=== PATIENT | male | born 1935 | race Caucasian/White ===

== ENCOUNTER → 2023-11-25 08:07 | Outpatient (REF) | payer MEDICARE, OTHER, SELFPAY ==
[2023-11-25 10:11] LABS: ALT (SGPT) 25 U/L (0-50); AST (SGOT) 34 U/L (17-59); Albumin 3.6 g/dl (3.5-5.0); Alkaline Phosphatase 129 U/L (38-126); Blood Urea Nitrogen 16 mg/dl (9-20); Calcium 9.2 mg/dl (8.4-10.2); Carbon Dioxide 29 mmol/L (22-30); Chloride 100 mmol/L (98-107); Glucose 104 mg/dl (70-99); HDL Cholesterol 34 mg/dl; LDL Cholesterol, Calculated 48 mg/dl; Sodium 140 mmol/L (135-145); Total Bilirubin 0.7 mg/dl (0.2-1.3); Total Cholesterol 101 mg/dl (50-199); Total Protein 6.3 g/dl (6.3-8.2); Triglyceride 95 mg/dl (10-149); Very Low Density Lipoprotein 19 mg/dl (0-30); eGFR > 60.00
[2023-11-25 10:25] LABS: Vitamin D, 25-OH*** 71.8 ng/mL (30-80)
== END ==
LOC: REG 08:07
PROVIDERS: ATTENDING PHYSICIAN Internal Medicine Cardiovascular Disease; FAMILY PHYSICIAN Family Medicine
DX: E55.9 Vitamin D deficiency, unspecified (principal); R73.01 Impaired fasting glucose; E78.2 Mixed hyperlipidemia
CPT/HCPCS: 36415; 80053; 80061; 82306

== ENCOUNTER → 2024-03-30 07:21 | Outpatient (REF) | payer MEDICARE, OTHER, SELFPAY ==
[2024-03-30 09:08] LABS: ALT (SGPT) 25 U/L (0-50); AST (SGOT) 40 U/L (17-59); Albumin 4.1 g/dl (3.5-5.0); Alkaline Phosphatase 115 U/L (38-126); Blood Urea Nitrogen 18 mg/dl (9-20); Calcium 9.3 mg/dl (8.4-10.2); Carbon Dioxide 30 mmol/L (22-30); Chloride 104 mmol/L (98-107); Glucose 105 mg/dl (70-99); HDL Cholesterol 37 mg/dl; LDL Cholesterol, Calculated 59 mg/dl; Potassium 4.2 mmol/L (3.5-5.1); Sodium 141 mmol/L (135-145); Total Bilirubin 0.6 mg/dl (0.2-1.3); Total Cholesterol 122 mg/dl (50-199); Triglyceride 131 mg/dl (10-149); Very Low Density Lipoprotein 26 mg/dl (0-30); eGFR > 60.00
[2024-03-30 09:23] LABS: Vitamin D, 25-OH*** 71.2 ng/mL (30-80)
[2024-03-30 09:41] LABS: Glycohemoglobin (HgbA1c) 5.9 % (4.0-5.6)
== END ==
LOC: REG 07:21
PROVIDERS: ATTENDING PHYSICIAN Family Medicine; REFERRING PHYSICIAN Internal Medicine Cardiovascular Disease
DX: E55.9 Vitamin D deficiency, unspecified (principal); R73.01 Impaired fasting glucose; Z79.899 Other long term (current) drug therapy
CPT/HCPCS: 36415; 80053; 80061; 82306; 83036

== ENCOUNTER → 2024-05-14 06:54 | Outpatient (REF) | payer MEDICARE, OTHER, SELFPAY | LOC: RCS 06:54 | PROVIDERS: ATTENDING PHYSICIAN Internal Medicine Cardiovascular Disease; FAMILY PHYSICIAN Family Medicine | DX: I48.92 Unspecified atrial flutter (principal); I34.0 Nonrheumatic mitral (valve) insufficiency | CPT/HCPCS: 93306 ==

== ENCOUNTER → 2025-03-31 07:53 | Outpatient (REF) | payer MEDICARE, OTHER, SELFPAY ==
[2025-03-31 09:02] LABS: ALT (SGPT) 22 U/L (0-50); AST (SGOT) 28 U/L (17-59); Albumin 4.5 g/dl (3.5-5.0); Alkaline Phosphatase 98 U/L (38-126); Blood Urea Nitrogen 21 mg/dl (9-20); Calcium 9.4 mg/dl (8.4-10.2); Carbon Dioxide 28 mmol/L (22-30); Chloride 109 mmol/L (98-107); Glucose 105 mg/dl (70-99); HDL Cholesterol 38 mg/dl; LDL Cholesterol, Calculated 73 mg/dl; Potassium 4.2 mmol/L (3.5-5.1); Sodium 144 mmol/L (135-145); Total Bilirubin 0.7 mg/dl (0.2-1.3); Total Cholesterol 135 mg/dl (50-199); Total Protein 7.5 g/dl (6.3-8.2); Triglyceride 121 mg/dl (10-149); Uric Acid 5.1 mg/dl (3.5-8.5); Very Low Density Lipoprotein 24 mg/dl (0-30); eGFR > 60.00
[2025-03-31 09:20] LABS: Vitamin D, 25-OH*** 56.8 ng/mL (30-80)
[2025-03-31 10:27] LABS: CRP, Ultra Sensitive 0.83 mg/L (0.30-5.00)
== END ==
LOC: REG 07:53
PROVIDERS: ATTENDING PHYSICIAN Family Medicine; REFERRING PHYSICIAN Internal Medicine Cardiovascular Disease
DX: I25.10 Atherosclerotic heart disease of native coronary artery without angina pectoris (principal); E55.9 Vitamin D deficiency, unspecified
CPT/HCPCS: 36415; 80053; 80061; 82306; 84550; 86141

== ENCOUNTER → 2025-06-02 15:34 | Outpatient (REF) | payer MEDICARE, OTHER, SELFPAY | LOC: REG 15:34 | PROVIDERS: ATTENDING PHYSICIAN Family Medicine | DX: R50.9 Fever, unspecified (principal) | CPT/HCPCS: 71046 ==

== ENCOUNTER 2025-08-21 20:15 | Inpatient (IN) | payer MEDICARE, OTHER, SELFPAY ==
[2025-08-21] VITALS (9 sets, daily range): BP systolic 109–175; BP diastolic 51–83; BMI 27.8; BMI 28.8
[2025-08-21 14:05] LABS: Hematocrit 39.5 % (39.0-52.0); Hemoglobin 14.7 g/dL (13.0-18.0); Mean Corp Hgb Conc. 37.2 g/dL (33.0-37.0); Mean Corpuscular Volume 88.0 fL (80.0-94.0); Nucleated Red Blood Cells % 0 % (-); Platelet Count 156 10^3/uL (130-400); Red Cell Dist. Width 13.7 % (11.5-14.5)
[2025-08-21 14:16] LABS: ALT (SGPT) 20 U/L (0-50); AST (SGOT) 29 U/L (17-59); Albumin 4.8 g/dl (3.5-5.0); Alkaline Phosphatase 96 U/L (38-126); Blood Urea Nitrogen 29 mg/dl (9-20); Calcium 9.1 mg/dl (8.4-10.2); Carbon Dioxide 20 mmol/L (22-30); Chloride 106 mmol/L (98-107); Glucose 135 mg/dl (70-99); Potassium 3.1 mmol/L (3.5-5.1); Sodium 140 mmol/L (135-145); Total Protein 7.6 g/dl (6.3-8.2); eGFR > 60.00
[2025-08-21 14:26] LABS: COVID-19 Antigen Negative (Negative)
--- NOTE | 2025-08-21 14:51 | ED.GENMED ---
History of Present Illness
<Mango Turcios DO - Last Filed: 08/21/25 15:18>
General
Chief Complaint: Fever
Time Seen by Provider: 08/21/25 14:37
<EUFEMIA Urbina - Last Filed: 08/21/25 21:14>
General
Source: patient and spouse
Exam Limitations: none
Nursing documentation reviewed up to this point in time: agreed with
History of Present Illness
History of Present Illness:
Patient is an 89-year-old male who presents to the ER complaining of chills that started last night. This morning patient continued to have chills and had severe diarrhea but did vomit once. His temperature was 102 this morning. reports she
did give him Tylenol. Patient denies any abdominal pain. He felt a little uncomfortable with urination but denies any actual pain. He does have a history of a flutter and is on Eliquis. He denies any recent URI cough cold symptoms.
Past History
<EUFEMIA Urbina - Last Filed: 08/21/25 21:14>
Past History
ED Past Medical History: HTN, Hypercholesterolemia and Other (gout, diverticulosis)
ED Past Surgical History: None
Social History
Tobacco: Non-smoker
Alcohol: None
Personal:
Living: with family
Employment: Retired
Family History
Family History: Other (Noncontributory)
Phy Exam
<EUFEMIA Urbina - Last Filed: 08/21/25 21:14>
General Physical Exam
General Presentation: no apparent distress
General age: appears stated age
General Skin: warm and dry
General Habitus: normal
General Mental: alert
General Hydration: dry mucous membranes
Cardiovascular Exam
Cardiovascular Exam: no murmur and occasionally irregular
Pulmonary Exam
Pulmonary Exam: lungs clear and no respiratory distress
Gastrointestinal Exam
Gastrointestinal Exam: non tender and soft
Neurological Exam
Neurological Exam: alert and oriented x3
Musculoskeletal Exam
Musculoskeletal Exam: full ROM
Skin Exam
Skin Exam: normal color and warm/dry
Psychiatric Exam
Psychiatric Exam: normal mood/affect
Course
<Mango Turcios, DO - Last Filed: 08/21/25 15:18>
Orders/Labs/Results
Orders:
Orders
08/21/25 Breakfast
Clear Liquid
At Your Request: Full Participation
08/21/25 13:51
Complete Blood Count/With Diff Urgent
Comprehensive Metabolic Panel Urgent
Blood Culture Q20M
INOCENTE Source: Blood/Venous
Specimen Description:
Comment: Urgent from separate sites. If patient screens positive for possible sepsis
Influenza A+B Rapid Molecular Urgent
INOCENET Source: Nasal Swab
Specimen Description:
08/21/25 13:52
COVID-19 Antigen Urgent
Source: Nasal Swab
Lactic Acid Q4H
Comment: ON ICE, CANCEL 2ND ORDER IF FIRST LACTIC ACID LEVEL <2
08/21/25 15:06
CT Abd/pelvis W Iv Cont Urgent
Comment:
Reason For Exam: abd pain/fever
Chest [CR Chest - 2 Views ] Urgent
Comment:
Reason For Exam: fever
08/21/25 15:07
Electrocardiogram (*1) Urgent
Reason for Study: Other
Other Reason for Exam: sepsis
Cardiac Monitoring- Treatment ONCE
EKG- Treatment ONCE
08/21/25 15:15
0.9% Sodium Chloride 1000 ml [Nss] 2,600 ml IV NOW STA
08/21/25 15:22
Blood Culture Q20M
INOCENTE Source: Blood/Venous
Specimen Description:
Comment: Urgent from separate sites. If patient screens positive for possible sepsis
08/21/25 17:20
CefTRIAXone [Rocephin] 1,000 mg IV NOW STA
08/21/25 17:40
Lactic Acid Q4H
Comment: ON ICE, CANCEL 2ND ORDER IF FIRST LACTIC ACID LEVEL <2
Urinalysis Reflex To Culture Urgent
Date Specimen was Collected: 08/21/25
Time Specimen was Collected: 13:42
Urine Microscopic Reflex Cult Urgent
Urine Culture Urgent
INOCENTE Source: U
Specimen Description:
Date Specimen was Collected: 08/21/25
Time Specimen was Collected: 13:42
08/21/25 18:39
Admit/Transfer Patient As Directed
Co-Sign Provider:
Level of Care: Inpatient admission
Assign to:: Telemetry
Physician / Group: Valorie
Diagnosis: Sepsis
Reason for Telemetry: Arrhythmia
Date to Stop Telemetry: 08/24/25
Time to Stop Telemetry: 11:00
Reason for Hospitalization: IVFs, IV abx
Expected length of stay greater than two midnights?: Yes
ELOS- Estimated Length of Stay in days: 3
I certify the patient meets the requirements for IP care: Yes
08/21/25 18:40
PRN Pain Medication Management As Directed
May give lesser potent ordered pain med per pt: Yes
preference::
Protocol:: Medication orders for pain may be administered in a
manner that supports deferring to patient preference
when the pt is:
- Requesting an ordered lesser potent pain medication.
Least to most potent pain medications are defined
as: acetaminophen < NSAID < tramadol < opioids
(morphine, oxycodone, hydromorphone).
- Requesting a lesser dose of the same medication IF
ORDERED.
- Requesting a less intrusive route of administration
if both routes are prescribed by the provider (PO <
IV).
08/21/25 18:42
Code Status As Directed
Resuscitation Status: Full Code
08/21/25 18:45
0.9% Sodium Chloride 1000 ml [Nss] 1,000 ml IV 120 mls/hr
08/21/25 18:52
Potassium Chloride [KCl] 40 meq 0.9% Sodium Chloride 250 ml [Nss] 250 ml IV NOW
08/21/25 19:32
Norovirus by PCR Urgent
INOCENTE Source: Feces/Stool
Specimen Description:
Date Specimen was Collected: 08/21/25
Time Specimen was Collected: 19:30
Stool Culture Urgent
INOCENTE Source: Feces/Stool
Specimen Description:
Date Specimen was Collected: 08/21/25
Time Specimen was Collected: 19:30
08/21/25 20:56
Acetaminophen [Tylenol] 650 mg PO Q4HPRN PRN
Apixaban [Eliquis] 5 mg PO BID
Metoprolol [Lopressor] 25 mg PO BID
Ondansetron Injectable [Zofran] 4 mg IV Q6HPRN PRN
08/21/25 20:56
Activity As Directed
Activity Level: Out of Bed-Early Mobility
With Assistance
Bladder Scan As Directed
Follow Bladder Retention/Intermittent Cath Algorithm?: Yes
PRN if no void in __ hours: 6
Frequency: Per Retention Algorithm
If Bladder Scan Result >: 400
then:: Straight cath
I&O [Intake/ Output] As Directed
Frequency: q12h
Straight Cath As Directed
Frequency: Per Retention Algorithm
Additional Instructions: straight cath as needed per acute urinary retention algorithm for 24 hrs
Additional Instructions: for bladder scan greater than 400 mL
Vital Signs As Directed
Frequency: Per unit guidelines
Weight As Directed
Frequency: Daily
08/21/25 21:45
Lactic Acid Q4H
Comment: repeat q4 hours x 4 or until less than 2 mmol/L
08/21/25 22:00
Melatonin 5 mg PO HS
08/22/25 01:45
Lactic Acid Q4H
Comment: repeat q4 hours x 4 or until less than 2 mmol/L
08/22/25 06:00
Basic Metabolic Panel IN AM
Complete Blood Count/No Diff IN AM
Hgba1c [Glycohemoglobin (HgbA1c)] IN AM
Magnesium IN AM
08/22/25 08:00
Lisinopril [Zestril] 10 mg PO DAILY
08/22/25 18:00
Allopurinol [Zyloprim] 200 mg PO QPM
Atorvastatin [Lipitor] 40 mg PO QPM
CefTRIAXone [Rocephin] 1,000 mg IV Q24H
08/24/25 11:00
DC Protocol for Telemetry ONCE
Abnormal Lab Results
08/21/25 08/21/25 08/21/25
13:51 13:52 17:40
WBC 21.7 H 10^3/uL
(4.8-10.8)
RBC 4.49 L 10^6/uL
(4.70-6.10)
MCH 32.7 H pg
(27.0-31.0)
MCHC 37.2 H g/dL
(33.0-37.0)
Abs Immat Gran (auto) 0.3 H 10^3/uL
(0-0.05)
Absolute Neuts (auto) 19.2 H 10^3/uL
(1.4-6.5)
Absolute Lymphs (auto) 0.7 L 10^3/uL
(1.2-3.4)
Absolute Monos (auto) 1.5 H 10^3/uL
(0.1-0.6)
Immature Gran % 1.3 H %
(0-0.5)
Neutrophils % 88.3 H %
(42.2-75.2)
Lymphocytes % 3.1 L %
(20.5-51.1)
Potassium 3.1 L mmol/L
(3.5-5.1)
Carbon Dioxide 20 L mmol/L
(22-30)
BUN 29 H mg/dl
(9-20)
Glucose 135 H mg/dl
(70-99)
Lactic Acid 2.1 H mmol/L 2.4 H mmol/L
(0.7-2.0) (0.7-2.0)
Total Bilirubin 1.5 H mg/dl
(0.2-1.3)
Ur Occult Blood Reflex 4+ A
(Negative)
Urine Nitrite (Reflex) Positive A
(Negative)
Leukocyte Esterase Rfl 3+ A
(Negative)
Urine RBC 40-50 A /HPF
(0-2)
Urine WBC (Reflex) 30-40 A /HPF
(0-5)
Urine Bacteria (Reflex) Moderate A
(Negative)
Urine Albumin (Reflex) 2+ A
(Neg - Trace)
08/21/25 13:51
08/21/25 13:51
Vital Signs
Initial and Last Documented VS:
Initial Vital Signs
Temp Pulse Resp BP Pulse Ox
99.1 F 87 20 148/74 95
08/21/25 13:43 08/21/25 13:43 08/21/25 13:43 08/21/25 13:43 08/21/25 13:43
Last Documented Vital Signs
Temp Pulse Resp BP Pulse Ox
101.4 F H 88 20 175/83 97
08/21/25 20:55 08/21/25 20:55 08/21/25 20:55 08/21/25 20:55 08/21/25 20:55
<EUFEMIA Urbina - Last Filed: 08/21/25 21:14>
Orders/Labs/Results
Orders:
Orders
08/21/25 Breakfast
Clear Liquid
At Your Request: Full Participation
08/21/25 13:51
Complete Blood Count/With Diff Urgent
Comprehensive Metabolic Panel Urgent
Blood Culture Q20M
INOCENTE Source: Blood/Venous
Specimen Description:
Comment: Urgent from separate sites. If patient screens positive for possible sepsis
Influenza A+B Rapid Molecular Urgent
INOCENTE Source: Nasal Swab
Specimen Description:
08/21/25 13:52
COVID-19 Antigen Urgent
Source: Nasal Swab
Lactic Acid Q4H
Comment: ON ICE, CANCEL 2ND ORDER IF FIRST LACTIC ACID LEVEL <2
08/21/25 15:06
CT Abd/pelvis W Iv Cont Urgent
Comment:
Reason For Exam: abd pain/fever
Chest [CR Chest - 2 Views ] Urgent
Comment:
Reason For Exam: fever
08/21/25 15:07
Electrocardiogram (*1) Urgent
Reason for Study: Other
Other Reason for Exam: sepsis
Cardiac Monitoring- Treatment ONCE
EKG- Treatment ONCE
08/21/25 15:15
0.9% Sodium Chloride 1000 ml [Nss] 2,600 ml IV NOW STA
08/21/25 15:22
Blood Culture Q20M
INOCENTE Source: Blood/Venous
Specimen Description:
Comment: Urgent from separate sites. If patient screens positive for possible sepsis
08/21/25 17:20
CefTRIAXone [Rocephin] 1,000 mg IV NOW STA
08/21/25 17:40
Lactic Acid Q4H
Comment: ON ICE, CANCEL 2ND ORDER IF FIRST LACTIC ACID LEVEL <2
Urinalysis Reflex To Culture Urgent
Date Specimen was Collected: 08/21/25
Time Specimen was Collected: 13:42
Urine Microscopic Reflex Cult Urgent
Urine Culture Urgent
INOCENTE Source: U
Specimen Description:
Date Specimen was Collected: 08/21/25
Time Specimen was Collected: 13:42
08/21/25 18:39
Admit/Transfer Patient As Directed
Co-Sign Provider:
Level of Care: Inpatient admission
Assign to:: Telemetry
Physician / Group: Valorie
Diagnosis: Sepsis
Reason for Telemetry: Arrhythmia
Date to Stop Telemetry: 08/24/25
Time to Stop Telemetry: 11:00
Reason for Hospitalization: IVFs, IV abx
Expected length of stay greater than two midnights?: Yes
ELOS- Estimated Length of Stay in days: 3
I certify the patient meets the requirements for IP care: Yes
08/21/25 18:40
PRN Pain Medication Management As Directed
May give lesser potent ordered pain med per pt: Yes
preference::
Protocol:: Medication orders for pain may be administered in a
manner that supports deferring to patient preference
when the pt is:
- Requesting an ordered lesser potent pain medication.
Least to most potent pain medications are defined
as: acetaminophen < NSAID < tramadol < opioids
(morphine, oxycodone, hydromorphone).
- Requesting a lesser dose of the same medication IF
ORDERED.
- Requesting a less intrusive route of administration
if both routes are prescribed by the provider (PO <
IV).
08/21/25 18:42
Code Status As Directed
Resuscitation Status: Full Code
08/21/25 18:45
0.9% Sodium Chloride 1000 ml [Nss] 1,000 ml IV 120 mls/hr
08/21/25 18:52
Potassium Chloride [KCl] 40 meq 0.9% Sodium Chloride 250 ml [Nss] 250 ml IV NOW
08/21/25 19:32
Norovirus by PCR Urgent
INOCENTE Source: Feces/Stool
Specimen Description:
Date Specimen was Collected: 08/21/25
Time Specimen was Collected: 19:30
Stool Culture Urgent
INOCENTE Source: Feces/Stool
Specimen Description:
Date Specimen was Collected: 08/21/25
Time Specimen was Collected: 19:30
08/21/25 20:56
Acetaminophen [Tylenol] 650 mg PO Q4HPRN PRN
Apixaban [Eliquis] 5 mg PO BID
Metoprolol [Lopressor] 25 mg PO BID
Ondansetron Injectable [Zofran] 4 mg IV Q6HPRN PRN
08/21/25 20:56
Activity As Directed
Activity Level: Out of Bed-Early Mobility
With Assistance
Bladder Scan As Directed
Follow Bladder Retention/Intermittent Cath Algorithm?: Yes
PRN if no void in __ hours: 6
Frequency: Per Retention Algorithm
If Bladder Scan Result >: 400
then:: Straight cath
I&O [Intake/ Output] As Directed
Frequency: q12h
Straight Cath As Directed
Frequency: Per Retention Algorithm
Additional Instructions: straight cath as needed per acute urinary retention algorithm for 24 hrs
Additional Instructions: for bladder scan greater than 400 mL
Vital Signs As Directed
Frequency: Per unit guidelines
Weight As Directed
Frequency: Daily
08/21/25 21:45
Lactic Acid Q4H
Comment: repeat q4 hours x 4 or until less than 2 mmol/L
08/21/25 22:00
Melatonin 5 mg PO HS
08/22/25 01:45
Lactic Acid Q4H
Comment: repeat q4 hours x 4 or until less than 2 mmol/L
08/22/25 06:00
Basic Metabolic Panel IN AM
Complete Blood Count/No Diff IN AM
Hgba1c [Glycohemoglobin (HgbA1c)] IN AM
Magnesium IN AM
08/22/25 08:00
Lisinopril [Zestril] 10 mg PO DAILY
08/22/25 18:00
Allopurinol [Zyloprim] 200 mg PO QPM
Atorvastatin [Lipitor] 40 mg PO QPM
CefTRIAXone [Rocephin] 1,000 mg IV Q24H
08/24/25 11:00
DC Protocol for Telemetry ONCE
Abnormal Lab Results
08/21/25 08/21/25 08/21/25
13:51 13:52 17:40
WBC 21.7 H 10^3/uL
(4.8-10.8)
RBC 4.49 L 10^6/uL
(4.70-6.10)
MCH 32.7 H pg
(27.0-31.0)
MCHC 37.2 H g/dL
(33.0-37.0)
Abs Immat Gran (auto) 0.3 H 10^3/uL
(0-0.05)
Absolute Neuts (auto) 19.2 H 10^3/uL
(1.4-6.5)
Absolute Lymphs (auto) 0.7 L 10^3/uL
(1.2-3.4)
Absolute Monos (auto) 1.5 H 10^3/uL
(0.1-0.6)
Immature Gran % 1.3 H %
(0-0.5)
Neutrophils % 88.3 H %
(42.2-75.2)
Lymphocytes % 3.1 L %
(20.5-51.1)
Potassium 3.1 L mmol/L
(3.5-5.1)
Carbon Dioxide 20 L mmol/L
(22-30)
BUN 29 H mg/dl
(9-20)
Glucose 135 H mg/dl
(70-99)
Lactic Acid 2.1 H mmol/L 2.4 H mmol/L
(0.7-2.0) (0.7-2.0)
Total Bilirubin 1.5 H mg/dl
(0.2-1.3)
Ur Occult Blood Reflex 4+ A
(Negative)
Urine Nitrite (Reflex) Positive A
(Negative)
Leukocyte Esterase Rfl 3+ A
(Negative)
Urine RBC 40-50 A /HPF
(0-2)
Urine WBC (Reflex) 30-40 A /HPF
(0-5)
Urine Bacteria (Reflex) Moderate A
(Negative)
Urine Albumin (Reflex) 2+ A
(Neg - Trace)
08/21/25 13:51
08/21/25 13:51
Vital Signs
Initial and Last Documented VS:
Initial Vital Signs
Temp Pulse Resp BP Pulse Ox
99.1 F 87 20 148/74 95
08/21/25 13:43 08/21/25 13:43 08/21/25 13:43 08/21/25 13:43 08/21/25 13:43
Last Documented Vital Signs
Temp Pulse Resp BP Pulse Ox
101.4 F H 88 20 175/83 97
08/21/25 20:55 08/21/25 20:55 08/21/25 20:55 08/21/25 20:55 08/21/25 20:55
Armhole Presser consulted with Physician
Armhole Presser consulted with physician?: Yes
Name of Physician Consulted: Tam
<EUFEMIA Urbina - Last Filed: 08/21/25 21:14>
MDM/Problems Addressed
MDM/Problems Addressed:
89-year-old female presents to the ER for evaluation of fever chills diarrhea which started last night. Patient complained of mild comfort. Abdomen soft nontender patient presented with a low-grade temp of 99 1 with elevated white count of 21,000
elevated lactate of 2.4. Patient's blood pressure stable however he was given septic fluids. His BUN is elevated potassium mildly low. CAT scan concerning for prostatitis. Urine appears dirty. He cannot recall what his allergy was but had an
allergic reaction to Cipro in the past IV Rocephin ordered.
Patient will require mission to the hospital service patient was evaluated by ER Physician.
<EUFEMIA Urbina - Last Filed: 08/21/25 21:14>
*Radiology
Radiology exam reviewed: radiology read reviewed
*Pulse Oximetry
SaO2: 95
Oxygen Mode of Delivery: Room air
Patient hypoxic: no
*EKG
Interpreted by ED Provider?: Yes
Heart Rate: 73
Rate: normal
Rhythm: sinus
Ischemia: no ischemia
*Critical Care Note
Total Time (30-74mins, 75-104mins- exclusive of procedures): Not Applicable
ED Attending Note
<Mango Turcios DO - Last Filed: 08/21/25 15:18>
ED Attending Note
Patient seen and examined by attending physician: Yes
I performed the substantive portion of visit, reviewed & personally made and approve the management plan that is documented in note by myself or SURJIT.: Yes
ED Attending Note:
I have seen and evaluated the patient with a [id number] encounter. I have spoken to the advance practicer provider and involved in the medical history, the physical exam, medical decision making.
Evaluation and management service: agree unless noted differently below.
Results interpretation: agree unless noted differently below.
Focused HPI: 89-year-old male presenting with intermittent rigors and fevers. He denies any specific source of infection such as urinary symptoms or shortness of breath or abdominal pain. at bedside concerned about prior history of
diverticulitis
Physical exam: Sitting in bed comfortably. Very mild abdominal bloating and left lower quadrant tenderness
Medical Decision Making: Given his age and complaint, will obtain CT to rule out diverticulitis. Patient found to have significant leukocytosis
<EUFEMIA Urbina - Last Filed: 08/21/25 21:14>
-
Portions of this chart may have been created with voice recognition software.� Occasional wrong word or��sound alike� substitutions may have occurred due to the inherent limitations of voice recognition software.
Discharge Plan
Departure
Patient Disposition: Admit
Date of Disposition: 08/21/25
Time of Disposition: 18:21
Admit to: Med/Surg
Admit to doctor: hospitalist
Presentation/result/management discussed w/ accepting MD/DO: Hospitalist
Patient with high blood pressure during this ER visit?: Yes
Condition: Fair
Covid-19: Not Applicable
Discharge Problem:
Fever, Acute UTI, Prostatitis, Sepsis
Interventions
Interventions:
*Risk Screen - Suicide Last Done: 08/21/25 13:43
*General Assessment Last Done: 08/21/25 13:43
*Neglect/Abuse Screening Last Done: 08/21/25 13:43
*ED- Fall Risk Assessment Last Done: 08/21/25 13:43
*ED COVID-19 Vaccine History Last Done: 08/21/25 13:43
*ED Influenza Vaccine History Last Done: 08/21/25 13:43
*Nursing Disposition Last Done: 08/21/25 20:40
ED- Neurological Assessment Last Done: 08/21/25 15:32
ED-Skin Assessment Last Done: 08/21/25 15:34
Discharge Date and Time
Discharge Date/Time: 08/21/25 20:40
[2025-08-21] MEDS: NSS 2600 ML IV (15:18)
[2025-08-21 17:58] LABS: Urine Character Cloudy (Clear)
--- NOTE | 2025-08-21 18:19 | HPS.HSE ---
Addendum entered and electronically signed by Stephanie Eugene MD 08/21/25 19:32:
This is an addendum to the H&P written by Diamond Lopez on 08/21/2025. �Patient seen and examined independently with PA.
89-year-old male past medical history of CAD status post stent, atrial fibrillation on Eliquis, hypertension, hyperlipidemia, GERD, gout, prediabetes, presenting with chills since last night and severe diarrhea and episode of vomiting. �Temperature
102 today.� No urinary symptoms.
Vitals show unremarkable.
Labs show WBC of 21. �Potassium 3.1. �Lactic acid 2.1. �Urinalysis shows cloudy urine, positive nitrates, +3 leukocyte esterase.
Chest x-ray shows no acute abnormality. �CT abdomen pelvis shows moderate prostatomegaly, apparent mild stranding along the prostate and seminal vesicles.
Patient with sepsis secondary to acute gastroenteritis/possible prostatitis.� Clears. Check stool studies if able. Check blood cultures, urine culture, IV fluids, ceftriaxone. �Trend lactate.
Hypokalemia for diarrhea. Replete potassium.�
Original Note:
Family Physician
-
Family Physician: Home [facility]
Chief Complaint
-
Fever and Diarrhea
History of Present Illness
Patient is an 89 y/o male past medical history of CAD, A-fib, HTN, Hyperlipidemia and Gout who presents with fever and diarrhea. He reports many episodes of diarrhea this morning with one episode of vomiting. He reports significant chills over
night with temp 102F prior to arrival. He denies any abdominal pain. He reports questionable food intake of fish salad yesterday for lunch.
Medical History
Past Medical History
Past Medical History: Reports Other
Additional Past Medical History:
Coronary Artery Disease s/p Stent
Valvular Heart Disease
Atrial Fibrillation / Flutter
Essential Hypertension
Hyperlipidemia
Gout
Past Surgical History: Reports Other
Additional Past Surgical History:
Left Knee Surgery
Tendon Repair Left 4th Finger
Umbilical Hernia Repair
Social History
Tobacco: Non-smoker
Alcohol: Occasional
Personal:
Living: With Family
Employment: Retired
Family History
Family History: Not pertinent
Allergies / Home Medications
Allergies reflects when Allergies were last updated in [facility].
Home Medications with original date entered in [facility]
Allergy/Medication List:
Allergies
Allergy/AdvReac Type Severity Reaction Status Date / Time
ciprofloxacin Allergy Unknown Verified 05/22/23 17:14
Sulfa (Sulfonamide Allergy Unknown Verified 05/22/23 17:14
Antibiotics)
Home Medications
allopurinol 100 mg tablet 200 mg PO QPM 01/16/18
atorvastatin 40 mg tablet 40 mg PO QPM 01/16/18
lisinopril 10 mg tablet 10 mg PO DAILY 01/16/18
metoprolol tartrate 25 mg tablet 25 mg PO BID 01/16/18
acetaminophen 500 mg tablet (Tylenol Extra Strength) 500 mg PO BID@0800,1400 08/24/19
apixaban 5 mg tablet (Eliquis) 5 mg PO BID 08/24/19
calcium no.26 167 mg-magnesium no.15 83 mg-zinc 5 mg capsule 1 cap PO DAILY 08/21/25
diphenhydramine 25 mg-acetaminophen 500 mg tablet (Acetaminophen PM) 1 tab PO HS sleep 08/21/25
fluticasone propionate 50 mcg/actuation nasal spray,suspension 1 spray intranasal QPM 08/21/25
omega 8-vhf-ndh-fish oil 1,000 mg (120 mg-180 mg) capsule (Fish Oil) 1 cap PO DAILY 08/21/25
omeprazole 20 mg capsule,delayed release 20 mg PO BID 08/21/25
fqnwitidnkqfu-NW-fjnovniskzdva-guaifen 5 mg-10 mg-325 mg-200 mg tablet (Tylenol Cold and Flu Severe) 2 tab PO DAILYPRN PRN cold 08/21/25
polyethylene glycol 3350 17 gram oral powder packet 17 g PO DAILY 08/21/25
therapeutic multivitamin 1 tab PO DAILY 08/21/25
Review of Systems
-
A 12 point ROS was completed and negative except as noted: Yes
Constitutional: Reports Fever and Chills
Respiratory: Denies Cough or Trouble Breathing
Cardiac: Denies Chest Pain or Palpitations
Abdomen/GI: Reports See HPI
: Denies Dysuria, Frequency or Incontinence
Physical Exam
Vital Signs
Vital Signs
Temp Pulse Resp BP Pulse Ox
99.1 F 67 20 148/74 95
08/21/25 13:43 08/21/25 17:10 08/21/25 13:43 08/21/25 13:43 08/21/25 15:18
Physical Exam
General: Comfortable and Conversant
HEENT: Anicteric and Moist mucous membranes
Respiratory: Clear and Non Labored Respirations
Cardiac: S1/S2, Irregular Rhythm and Murmur
GI: Soft, Non Tender and Other (Slightly hyperactive bowel sounds)
Rectal: Deferred by Provider
Genito-urinary: Clear Urine
Musculoskeletal: No Clubbing, No Cyanosis and No Edema
Skin: Warm and Dry
Neuro: Awake, Alert, Oriented and Nonfocal/grossly intact
Psych: Calm
Laboratory Results
-
08/21/25 13:51
08/21/25 13:51
Laboratory Results
Lactic Acid 2.4 mmol/L (0.7-2.0) H 08/21/25 17:40
Total Bilirubin 1.5 mg/dl (0.2-1.3) H 08/21/25 13:51
AST 29 U/L (17-59) 08/21/25 13:51
ALT 20 U/L (0-50) 08/21/25 13:51
Alkaline Phosphatase 96 U/L (38-126) 08/21/25 13:51
Chest X-Ray:
No acute cardiopulmonary abnormality.
Abd/Pelvis CT:
Moderate prostatomegaly. There is apparent mild stranding along the prostate and seminal vesicles which is nonspecific although can be seen with prostatitis. Consider correlation with urinalysis.
Colonic diverticulosis.
Bilateral renal cysts including a small hemorrhagic cyst along the superior pole the right kidney and inferior pole left kidney.
Data Reviewed
-
CT Scan: Report Reviewed by me
Lab Data: Labs Reviewed by me
Impression/Plan
-
Sepsis with Lactic Acidosis secondary to Gastroenteritis vs Prostatitis (favor gastroenteritis due to profound GI symptoms, and lack of urinary symptoms)
-Continue to trend lactic acid level
-Continue IVFs
-Continue ceftriaxone
-Allow clear liquids
-Await urine and blood cultures
-Check stool cultures, and stool for norovirus
Coronary Artery Disease s/p Stent
-Stable
Atrial Fibrillation / Flutter, unknown duration
-Continue Eliquis for anticoagulation
-Continue metoprolol for rate control
Essential Hypertension
-Continue metoprolol and lisinopril
Hyperlipidemia
-Continue atorvastatin
DVT proph: Eliquis
Code Status: Full Code
[2025-08-21 18:47] LABS: Urine Squamous Cell 0-2 /LPF (Few); Urine Urothelial Cell 0-2 /LPF (FEW)
[2025-08-21 18:48] LABS: Urine Red Blood Cell 40-50 /HPF (0-2); Urine White Cell 30-40 /HPF (0-5)
[2025-08-21] MEDS: KCL 270 MEQ IV (19:20)
[2025-08-21] MEDS: NSS 1000 IV (19:20)
[2025-08-21] MEDS: ROCEPHIN 1000 MG IV (19:20)
--- NOTE | 2025-08-21 20:56 | TRANSFER ---
Pt arrived from ED by stretcher. Able to ambulate into room by self. Came with NSS and potassium chloride running through a right forearm IV. Alert and oriented x 3. BP 175/83 and a Temp of 101.4. Lopressor and tylenol were given. Call [facility] within
reach. Will continue to monitor.
[2025-08-21] MEDS: MELATONIN 5 MG PO (21:11)
[2025-08-21] MEDS: LOPRESSOR 25 MG PO (21:12)
[2025-08-21] MEDS: ELIQUIS 5 MG PO (21:12)
[2025-08-21] MEDS: TYLENOL 650 MG PO (21:12)
[2025-08-22 03:00] VITALS: BP 112/78
[2025-08-22] MEDS: TYLENOL 650 MG PO ×2 (03:10→13:54)
[2025-08-22] MEDS: NSS 1000 IV ×2 (03:49→18:03)
[2025-08-22 05:16] VITALS: BMI 28.8
[2025-08-22 06:34] LABS: Hematocrit 35.3 % (39.0-52.0); Hemoglobin 12.1 g/dL (13.0-18.0); Mean Corp Hgb Conc. 34.3 g/dL (33.0-37.0); Mean Corpuscular Volume 90.5 fL (80.0-94.0); Platelet Count 137 10^3/uL (130-400); Red Cell Dist. Width 13.8 % (11.5-14.5)
[2025-08-22 07:01] LABS: Blood Urea Nitrogen 26 mg/dl (9-20); Calcium 8.2 mg/dl (8.4-10.2); Carbon Dioxide 23 mmol/L (22-30); Chloride 109 mmol/L (98-107); Estimated Creatinine Clearance 59 ml/min; Glucose 120 mg/dl (70-99); Magnesium 1.5 mg/dl (1.6-2.3); Sodium 140 mmol/L (135-145); eGFR > 60.00
[2025-08-22 07:06] LABS: Potassium 3.7 mmol/L (3.5-5.1)
[2025-08-22 07:49] VITALS: BP 153/76
[2025-08-22 08:40] LABS: Glycohemoglobin (HgbA1c) 5.6 % (4.0-5.9)
[2025-08-22] MEDS: ZESTRIL 10 MG PO (08:47)
[2025-08-22] MEDS: ELIQUIS 5 MG PO ×2 (08:50→20:56)
[2025-08-22] MEDS: LOPRESSOR 25 MG PO ×2 (08:50→20:57)
[2025-08-22] MEDS: MAGNESIUM SULFATE 50 IV (09:09)
[2025-08-22 11:23] VITALS: BP 164/82
--- NOTE | 2025-08-22 12:40 | W.PN.HOSP.TC ---
Today's Communication/Plan
-
Increase rocephin 2g
check repeat bcx
ID eval
advance to fulls
Assessment / Plan
Assessment / Plan
General: Comfortable and Conversant
HEENT: Anicteric and Moist mucous membranes
Respiratory: Clear and Non Labored Respirations
Cardiac: S1/S2, Irregular Rhythm and Murmur
GI: Soft, Non Tender and +bowel sounds)
Rectal: Deferred by Provider
Genito-urinary: Clear Urine
Musculoskeletal: No Clubbing, No Cyanosis and No Edema
Skin: Warm and Dry
Neuro: Awake, Alert, Oriented and Nonfocal/grossly intact
Psych: Calm
Sepsis with Lactic Acidosis secondary to Gastroenteritis vs Prostatitis
Gram negative bacteremia
- Lactic acidosis resolved
-Continue IVFs and stop later today
-Continue ceftriaxone
-Advance diet to fulls
-Await urine culture results. Blood cultures with gram-negative bacteremia. Await identification and susceptibility results. Check surveillance cultures
-Stool studies negative for norovirus. Additional stool studies pending.
-will consult ID
Coronary Artery Disease s/p Stent
-Stable
Atrial Fibrillation / Flutter, unknown duration
-Continue Eliquis for anticoagulation
-Continue metoprolol for rate control
Essential Hypertension
-Continue metoprolol and lisinopril
Hyperlipidemia
-Continue atorvastatin
Hypomagnesemia
Hypokalemia
Replete and monitor
DVT proph: Eliquis
Code Status: Full Code
Anticipated Discharge: > 48 hours
Subjective/Interval History
-
Date of Service: August 22, 2025
ate fish salad and symptoms started afterwards
having multiple loose bm.
no nausea or vomiting
Objective Data
-
Labs:
Laboratory Results
08/22/25
06:17
WBC 23.3 H
Hgb 12.1 L
Hct 35.3 L
Plt Count 137
Sodium 140
Potassium 3.7
Chloride 109 H
Carbon Dioxide 23
BUN 26 H
Creatinine 0.9
Glucose 120 H
Calcium 8.2 L
Vital Signs:
Vital Signs
Temp Pulse Resp BP Pulse Ox
100.6 F H 69 17 164/82 97
08/22/25 11:23 08/22/25 11:23 08/22/25 11:23 08/22/25 11:23 08/22/25 11:23
I&O
08/21/25 08/22/25 08/23/25
05:59 06:59 06:59
Intake Total 480 / 480
Balance 480 / 480
Data Reviewed
-
Total Time Spent with Patient (in minutes): 58
--- NOTE | 2025-08-22 13:00 | CON.ID ---
Consultation
-
Date/Time Consultation Requested: August 22, 2025 1237
Date/Time Consultation Performed: August 22, 2025 1300
Requesting Provider: Dr. Zi Jaimes
Performing Provider: Dr. Joanie Tamez
Reason for Consultation: Gram-negative keith bacteremia
Chief Complaint / Past History
Chief Complaint
Fever and diarrhea
History of Present Illness
89 year old male with history of CAD, Afib, BPH who presented to ED last night due to diarrhea. He reports multiple episodes of watery stool yesterday AM with emesis x 1. No abd pain. He reports he had cooked fish salad at home for lunch the day
before. His had similar salad without issue. Pt reports also frequent urination. No dysuria, no flank pain. He states he sometimes feel like incomplete emptying of bladder. No h/o recurrent UTI In ED Tm 101.4, WBC 21.7, elev lactic acid, UA
+ nitrite, 30-40 wbc, bcx 1 of 2 Pseudomonas.
Past History
Additional Past Medical History:
CAD s/p Stent
Valvular Heart Disease
Atrial Fibrillation / Flutter
Hypertension
Dyslipidemia
Hyperlipidemia
Gout
BPH
Additional Past Surgical History:
Left Knee Surgery
Tendon Repair Left 4th Finger
Umbilical Hernia Repair
Allergy History:
ciprofloxacin Allergy (Verified 05/22/23 17:14)
Unknown
Sulfa (Sulfonamide Antibiotics) Allergy (Verified 05/22/23 17:14)
Unknown
Medications Reviewed: Yes
Current Antibiotics:
Ceftriaxone
Social History
Tobacco: Non-Smoker
Alcohol: Occasional
Drug: None
Personal:
Living: With Family
Family History
Family History: Not Pertinent
Review of Systems
Review of Systems
General: Fever, Chills and Change in Appetite
HEENT: Negative Sinus Problems or Headache
Cardiovascular: Negative Chest Pain or Dyspnea
Respiratory: Negative Dyspnea or Cough
Gasteroenterology: Diarrhea; Negative Nausea
Genital / Urological: Negative Dysuria, Hematuria or Flank Pain
Endocrine: Weakness
Skin / Hair / Nails: Negative Rash
Neurological: Negative Dizziness
All systems: All other systems were reviewed and were negative
Vital Signs
Temp Pulse Resp BP Pulse Ox
100.6 F H 69 17 164/82 97
08/22/25 11:23 08/22/25 11:23 08/22/25 11:23 08/22/25 11:23 08/22/25 11:23
Selected Entries
08/21/25
20:55 08/22/25
03:00 08/22/25
11:23
Temp 101.4 F H 101.1 F H 100.6 F H
Physical Exam
Physical Exam
Constitutional: No Acute Distress and Comfortable
Eyes: No Conjunctival Hemorrhage and Sclera Anicteric
Cardiovascular: Regular Rate and S1/S2
Pulmonary: Clear
Gastrointestinal: Soft, Non Tender, Non Distended and Normal Bowel Sounds
Genito-Urinary: Negative CVA Tenderness
Extremities: Negative Edema
Neurological: AO x 3
Lab / Diagnostic Study Results
08/22/25 06:17
08/22/25 06:17
Abs Immat Gran (auto) 0.3 10^3/uL (0-0.05) H 08/21/25 13:51
Absolute Neuts (auto) 19.2 10^3/uL (1.4-6.5) H 08/21/25 13:51
Absolute Lymphs (auto) 0.7 10^3/uL (1.2-3.4) L 08/21/25 13:51
Absolute Monos (auto) 1.5 10^3/uL (0.1-0.6) H 08/21/25 13:51
Absolute Basos (auto) 0.1 10^3/uL (0-0.2) 08/21/25 13:51
Immature Gran % 1.3 % (0-0.5) H 08/21/25 13:51
Neutrophils % 88.3 % (42.2-75.2) H 08/21/25 13:51
Lymphocytes % 3.1 % (20.5-51.1) L 08/21/25 13:51
Monocytes % 7.1 % (1.7-9.3) 08/21/25 13:51
Eosinophils % 0.0 % (0-6) 08/21/25 13:51
Basophils % 0.2 % (0-2) 08/21/25 13:51
Lactic Acid 1.7 mmol/L (0.7-2.0) 08/22/25 00:46
Ur Squamous Epith Cells 0-2 /LPF (Few) 08/21/25 17:40
Microbiology Results
Micro:
08/21/25 15:22 Blood Culture - Preliminary
Blood/Venous Positive culture in progress
Gram Stain - Preliminary
08/21/25 19:32 Norovirus (PCR) - Final
Feces/Stool Negative for Norovirus GI and GII.
08/21/25 19:32 Salmonella/Shigella Culture - Pending
Feces/Stool Campylobacter Culture - Pending
Shiga Toxin Test - Pending
08/21/25 17:40 Urine Culture - Pending
Urine
08/21/25 13:51 Influenza Types A & B (LEIDY) - Final
Nasal Swab Negative for Influenza A & B, NAAT
Negative results must be combined with clinical observations
and patient history.
Nucleic Acid Amplification test (NAAT)performed on the
[employer] platform.
08/21/25 13:51 Blood Culture - Pending
Blood/Venous
08/21/25 CXR: No acute cardiopulmonary abnormality.
08/21/25: CT a/p: Moderate prostatomegaly. There is apparent mild stranding along the prostate and seminal vesicles which is nonspecific although can be seen with prostatitis. Consider correlation with urinalysis.
Assessment / Plan
# Pseudomonas bacteremia
# Suspect prostatitis/complicated UTI
# Gastroenteritis
# Fever
# Leukocytosis - worse
# BPH
# Allergies to cipro, T/sulfa
- DC ceftriaxone.
- Start Zosyn
-Repeat blood cx's in am.
- Follow temps/wbc
Conditions present on admission:
CAD s/p Stent
Valvular Heart Disease
Atrial Fibrillation / Flutter
Hypertension
Dyslipidemia
Hyperlipidemia
Gout
BPH
[2025-08-22] MEDS: ZOSYN 100 IV ×2 (13:57→20:56)
[2025-08-22 16:06] VITALS: BP 115/60
[2025-08-22] MEDS: ZYLOPRIM 200 MG PO (18:00)
[2025-08-22] MEDS: LIPITOR 40 MG PO (18:00)
[2025-08-22 19:52] VITALS: BP 153/84
[2025-08-22] MEDS: MELATONIN 5 MG PO (20:56)
--- NOTE | 2025-08-22 21:40 | PTCARENOTE ---
Outstanding stool (CDIFF) collected and sent to Lab.
--- NOTE | 2025-08-22 22:10 | PTCARENOTE ---
Pt unable to void at times. Pt bladder scanned 612ml, had a small incontinent episode, rescanned for 590ml and straight cath 800ml charlette urine.
[2025-08-22 23:24] VITALS: BP 140/72
[2025-08-23] MEDS: ZOSYN 100 IV ×4 (01:54→20:53)
[2025-08-23 03:15] VITALS: BP 125/56
[2025-08-23 06:00] VITALS: BMI 29.5
[2025-08-23 06:34] LABS: Hematocrit 33.3 % (39.0-52.0); Hemoglobin 11.0 g/dL (13.0-18.0); Mean Corp Hgb Conc. 33.0 g/dL (33.0-37.0); Mean Corpuscular Volume 92.2 fL (80.0-94.0); Nucleated Red Blood Cells % 0 % (-); Platelet Count 128 10^3/uL (130-400); Red Cell Dist. Width 13.8 % (11.5-14.5)
[2025-08-23 06:49] LABS: Blood Urea Nitrogen 17 mg/dl (9-20); Calcium 8.2 mg/dl (8.4-10.2); Carbon Dioxide 23 mmol/L (22-30); Chloride 109 mmol/L (98-107); Estimated Creatinine Clearance 66 ml/min; Glucose 100 mg/dl (70-99); Magnesium 2.1 mg/dl (1.6-2.3); Potassium 3.3 mmol/L (3.5-5.1); Sodium 137 mmol/L (135-145); eGFR > 60.00
[2025-08-23] MEDS: ZESTRIL 10 MG PO (07:20)
[2025-08-23] MEDS: ELIQUIS 5 MG PO ×2 (07:24→20:53)
[2025-08-23] MEDS: LOPRESSOR 25 MG PO (07:24)
[2025-08-23 07:44] VITALS: BP 141/84
[2025-08-23] MEDS: KCL 40 MEQ PO (08:13)
[2025-08-23] MEDS: TYLENOL 650 MG PO (09:52)
[2025-08-23 11:24] VITALS: BP 149/74
--- NOTE | 2025-08-23 12:16 | W.PN.HOSP.TC ---
Today's Communication/Plan
-
Continue with IV Zosyn
Decrease metoprolol
Replete potassium
Probiotics
Advance diet
Assessment / Plan
Assessment / Plan
General: Comfortable and Conversant
HEENT: Anicteric and Moist mucous membranes
Respiratory: Clear and Non Labored Respirations
Cardiac: S1/S2, Irregular Rhythm and Murmur
GI: Soft, Non Tender and +bowel sounds)
Rectal: Deferred by Provider
Genito-urinary: Clear Urine
Musculoskeletal: No Clubbing, No Cyanosis and No Edema
Skin: Warm and Dry
Neuro: Awake, Alert, Oriented and Nonfocal/grossly intact
Psych: Calm
Sepsis with Lactic Acidosis secondary to prostatitis and suspected gastroenteritis
Pseudomonas bacteremia
- Lactic acidosis resolved
- Encourage increase p.o. intake
- Rocephin stopped Zosyn started. WBC downtrending.
- Diet advanced to low residue
-Await urine culture results. Blood cultures with Pseudomonas. Await i susceptibility results. Check surveillance cultures
-Stool studies negative for norovirus. Additional stool studies pending. Trial of Imodium and probiotic
-will consult ID
Coronary Artery Disease s/p Stent
-Stable
Atrial Fibrillation / Flutter, unknown duration with intermittent bradycardia
-Continue Eliquis for anticoagulation
-Continue metoprolol for rate control will decrease dose
Essential Hypertension
-Continue metoprolol and lisinopril
Hyperlipidemia
-Continue atorvastatin
Hypomagnesemia
Hypokalemia
Replete and monitor
DVT proph: Eliquis
Code Status: Full Code
Anticipated Discharge: > 48 hours
Subjective/Interval History
-
Date of Service: August 23, 2025
States of dysuria and diarrhea
multiple loose bowel movements
Objective Data
-
Labs:
Laboratory Results
08/23/25
05:52
WBC 16.1 H
Hgb 11.0 L
Hct 33.3 L
Plt Count 128 L
Sodium 137
Potassium 3.3 L
Chloride 109 H
Carbon Dioxide 23
BUN 17
Creatinine 0.8
Glucose 100 H
Calcium 8.2 L
Vital Signs:
Vital Signs
Temp Pulse Resp BP Pulse Ox
98.5 F 66 16 149/74 97
08/23/25 11:24 08/23/25 11:24 08/23/25 11:24 08/23/25 11:24 08/23/25 11:24
I&O
08/22/25 08/23/25 08/24/25
06:59 06:59 06:59
Intake Total 480 / 480 2520 / 2520
Output Total 800 / 800
Balance 480 / 480 1720 / 1720
Data Reviewed
-
Total Time Spent with Patient (in minutes): 56
--- NOTE | 2025-08-23 12:48 | W.PN.ID1 ---
Date of Service
Date of Service: August 23, 2025
Today's Communication
Continue Zosyn.
Assessment / Plan
# Pseudomonas bacteremia
# Suspect prostatitis/complicated UTI
# Diarrhea- C. diff neg, norovirus neg
# Fever- resolving
# Leukocytosis - improving
# BPH
# Allergies to cipro, T/sulfa
- Ucx: >100K mixed blaire/contaminated
- Repeat blood cx's pending
- Continue Zosyn (d2)
- Imodium prn for diarrhea.
- Follow temps/wbc
Conditions present on admission:
CAD s/p Stent
Valvular Heart Disease
Atrial Fibrillation / Flutter
Hypertension
Dyslipidemia
Hyperlipidemia
Gout
BPH
Chief Complaint
-: UTI and Bacteremia
Subjective / Review of Systems
Still with diarrhea.
Was in urine retention last night requiring straight cath.
Vital Signs / Physical Exam
Vital Signs
Vital Signs
Temp Pulse Resp BP Pulse Ox
98.5 F 66 16 149/74 97
08/23/25 11:24 08/23/25 11:24 08/23/25 11:24 08/23/25 11:24 08/23/25 11:24
Physical Exam
Constitutional: No Acute Distress
Cardiovascular: Regular Rate and S1/S2
Pulmonary: Clear
Gastrointestinal: Soft, Non Tender and Non Distended
Genito-Urinary: Negative CVA Tenderness
Neurological: AO x 3
Objective Data
Lab Data
Lab Results
08/23/25 05:52
08/23/25 05:52
Estimated Creat Clear 66 ml/min 08/23/25 05:52
Lactic Acid 1.7 mmol/L (0.7-2.0) 08/22/25 00:46
Total Bilirubin 1.5 mg/dl (0.2-1.3) H 08/21/25 13:51
AST 29 U/L (17-59) 08/21/25 13:51
ALT 20 U/L (0-50) 08/21/25 13:51
Alkaline Phosphatase 96 U/L (38-126) 08/21/25 13:51
Most recent labs reviewed.
Micro Results:
08/21/25 19:32 Salmonella/Shigella Culture - Preliminary
Feces/Stool Culture in Progress
Campylobacter Culture - Preliminary
Culture in Progress
Shiga Toxin Test - Pending
08/21/25 17:40 Urine Culture - Final
Urine
08/22/25 21:42 C. difficile GDH Antigen & Toxins - Final
Feces/Stool Negative for toxigenic C.difficile
08/21/25 15:22 Blood Culture - Preliminary
Blood/Venous Pseudomonas aeruginosa
Gram Stain - Preliminary
08/23/25 06:33 Blood Culture - Pending
Blood/Venous
08/23/25 05:52 Blood Culture - Pending
Blood/Venous
08/21/25 13:51 Blood Culture - Preliminary
Blood/Venous No Growth in 24 hours- Final report to follow
08/21/25 19:32 Norovirus (PCR) - Final
Feces/Stool Negative for Norovirus GI and GII.
08/21/25 13:51 Influenza Types A & B (LEIDY) - Final
Nasal Swab Negative for Influenza A & B, NAAT
Negative results must be combined with clinical observations
and patient history.
Nucleic Acid Amplification test (NAAT)performed on the
[employer] platform.
08/21/25 CXR: No acute cardiopulmonary abnormality.
08/21/25: CT a/p: Moderate prostatomegaly. There is apparent mild stranding along the prostate and seminal vesicles which is nonspecific although can be seen with prostatitis. Consider correlation with urinalysis.
[2025-08-23] MEDS: VISBIOME 2 CAP PO (13:36)
[2025-08-23] MEDS: IMODIUM 4 MG PO (13:37)
--- NOTE | 2025-08-23 15:33 | PTCARENOTE ---
Pt bladder scanned with 514mL as result. Pt straight cathed with 600mL return of odorous cloudy yellow urine. made aware.
[2025-08-23 15:57] LABS: Urine Character Clear (Clear)
[2025-08-23 16:00] VITALS: BP 178/88
[2025-08-23 16:17] LABS: Urine Red Blood Cell 70-80 /HPF (0-2); Urine Squamous Cell 0-2 /LPF (Few)
[2025-08-23 16:18] LABS: Urine White Cell 70-80 /HPF (0-5)
[2025-08-23] MEDS: ZYLOPRIM 200 MG PO (17:30)
[2025-08-23] MEDS: LIPITOR 40 MG PO (17:30)
[2025-08-23 19:18] VITALS: BP 157/64
[2025-08-23] MEDS: MELATONIN 5 MG PO (21:01)
[2025-08-23 23:19] VITALS: BP 157/76
[2025-08-24] VITALS (7 sets, daily range): BP systolic 161–187; BP diastolic 84–99; BMI 29.4
[2025-08-24] MEDS: ZOSYN 100 IV ×2 (02:58→08:14)
--- NOTE | 2025-08-24 03:00 | W.PN.UPDATE ---
Update Note
Progress Note Update
Patient frequently voiding small amounts, unable to empty bladder. PVR 697 mls. Patient has been straight cathed 3 times already. Spoke with patient about urinary retention and need to drain bladder, verbalized understanding. Order placed for orellana
catheter for acute retention.
[2025-08-24 06:35] LABS: Hematocrit 32.6 % (39.0-52.0); Hemoglobin 11.5 g/dL (13.0-18.0); Mean Corp Hgb Conc. 35.3 g/dL (33.0-37.0); Mean Corpuscular Volume 88.8 fL (80.0-94.0); Nucleated Red Blood Cells % 0 % (-); Platelet Count 135 10^3/uL (130-400); Red Cell Dist. Width 13.4 % (11.5-14.5)
[2025-08-24 06:58] LABS: Blood Urea Nitrogen 14 mg/dl (9-20); Calcium 8.5 mg/dl (8.4-10.2); Carbon Dioxide 26 mmol/L (22-30); Chloride 106 mmol/L (98-107); Estimated Creatinine Clearance 66 ml/min; Glucose 107 mg/dl (70-99); Potassium 3.3 mmol/L (3.5-5.1); Sodium 136 mmol/L (135-145); eGFR > 60.00
[2025-08-24] MEDS: ELIQUIS 5 MG PO ×2 (08:14→20:28)
[2025-08-24] MEDS: ZESTRIL 10 MG PO (08:18)
[2025-08-24] MEDS: KCL 40 MEQ PO (09:22)
--- NOTE | 2025-08-24 10:26 | CONS.URO ---
Consultation
-
Date/Time Consultation Performed: 08/24/25, 10:30AM
Requesting Provider: Theodore
Performing Provider: Virgilio
Reason for Consultation: urinary retention
Medical History
History of Present Illness
89M past medical history of CAD status post stent, atrial fibrillation on Eliquis, hypertension, hyperlipidemia, GERD, gout, prediabetes, presenting with chills, severe diarrhea and episode of vomiting.
On admission he was febrile to 102F with WBC 21, lactate 2.1, UA +nitrates, 3+ LE.
Blood Cx growing Pseudomonas, 08/21 UCx negative, 08/23 UCx pending
Imaging reviewed - CT A/P with contrast showed bladder distended, prostate heterogeneous appearing with moderate prostatomegaly and protrusion in to the bladder base with stranding along the prostate and seminal vesicles. No hydronephrosis or
ureteral filling defects. Bilateral simple renal cysts.
He has been retaining 300-600 mL requiring straight catheterization. Orellana placed this morning around 0330 with cloudy yellow ~800cc output of urine.
LUTS: reports incomplete bladder emptying and some weak stream, nocturia 2x
Previously tried flomax but did not tolerate due to low BP and interaction with his HTN meds
PMH: CAD, HTN, HLD, GERD, gout, pre-DM
PSH: no uro hx
Meds: eliquis, no other AC or bladder/prostate medications
Family History
Family History: Reviewed & Not Pertinent
Allergies/Home Medications
Allergies
Allergy/AdvReac Type Severity Reaction Status Date / Time
ciprofloxacin Allergy could not Verified 08/22/25 14:53
recall
rxn, but
'was very
bad'.
Sulfa (Sulfonamide Allergy Unknown Verified 05/22/23 17:14
Antibiotics)
Home Medications
�Medication �Instructions �Recorded �Confirmed �Type
allopurinol 100 mg tablet 200 mg PO QPM Gout 01/16/18 08/21/25 History
atorvastatin 40 mg tablet 40 mg PO QPM High Cholesterol 01/16/18 08/21/25 History
lisinopril 10 mg tablet 10 mg PO DAILY Blood Pressure 01/16/18 08/21/25 History
metoprolol tartrate 25 mg tablet 25 mg PO BID Blood Pressure 01/16/18 08/21/25 History
acetaminophen 500 mg tablet 500 mg PO BID@0800,1400 Fever/Pain 08/24/19 08/21/25 History
(Tylenol Extra Strength)
apixaban 5 mg tablet (Eliquis) 5 mg PO BID Blood Clot 08/24/19 08/21/25 History
Prevention/Tx
calcium no.26 167 mg-magnesium 1 cap PO DAILY Supplement 08/21/25 08/21/25 History
no.15 83 mg-zinc 5 mg capsule
diphenhydramine 25 1 tab PO HS sleep 08/21/25 08/21/25 History
mg-acetaminophen 500 mg tablet
(Acetaminophen PM)
fluticasone propionate 50 1 spray intranasal QPM Allergies 08/21/25 08/21/25 History
mcg/actuation nasal
spray,suspension
omega 6-kzo-edr-fish oil 1,000 mg 1 cap PO DAILY 08/21/25 08/21/25 History
(120 mg-180 mg) capsule (Fish Oil)
omeprazole 20 mg capsule,delayed 20 mg PO BID Gastrointestinal Issue 08/21/25 08/21/25 History
release
ilykovosefutc-IJ-nsnqsgmtbtotl-guaifen 2 tab PO DAILYPRN PRN cold 08/21/25 08/21/25 History
5 mg-10 mg-325 mg-200 mg tablet
(Tylenol Cold and Flu Severe)
polyethylene glycol 3350 17 gram 17 g PO DAILY Constipation 08/21/25 08/21/25 History
oral powder packet
therapeutic multivitamin 1 tab PO DAILY Supplement 08/21/25 08/21/25 History
Physical Exam
Vital Signs
Vital Signs
Temp Pulse Resp BP Pulse Ox
97.9 F 75 16 175/84 95
08/24/25 07:20 08/24/25 08:18 08/24/25 07:20 08/24/25 08:18 08/24/25 07:20
Lab / Testing Results
Laboratory Results
08/24/25 06:03
08/24/25 06:03
Physical Exam
General: Well Developed, Well Nourished and No Apparent Distress
HEENT: Normocephalic and Anicteric
Respiratory: Clear
GI: Soft, Non Tender and Non Distended
Genito-urinary: No Costovertebral Tend and Orellana Catheter (urine cloudy with sediment)
Skin: Warm and Dry
Psych: Calm
Assessment / Plan
-
89M who presented with chills, fevers and non-bothersome LUTS include incomplete emptying, found to have Pseudomonas bacteremia, urinary retention (> 700cc) requiring orellana catheter placement, and possible prostatitis vs prostate abscess
- CT reviewed - no overt abscess noted, however prostate appears heterogeneous which could be consistent with prostatitis
- Pt clinically improving with appropriate IV abx - no surgical intervention required at this time
- In the setting of recurrent fevers or uptrending WBC, recommend repeat prostate imaging
- Pt did not tolerate alpha blockers in the past due to low BP and interaction with HTN meds
- Recommend starting finasteride 5 mg to reduce prostate size over time to help with bladder emptying
- Continue orellana catheter until completion of IV abx -- will likely require OP void trial in our office
- Avoid narcotics, constipation
- Encourage ambulation
- Will continue to follow
Data Reviewed
-
CT Scan: Image personally visualized and interpreted
Lab Data: Labs Reviewed
Old Records: Reviewed
[2025-08-24] MEDS: PROSCAR 5 MG PO (12:24)
--- NOTE | 2025-08-24 12:31 | W.PN.HOSP.TC ---
Today's Communication/Plan
-
Out of bed with therapy
Monitor heart rate
Restart Lopressor at low-dose
Replete electrolytes
IV cefepime
Continue with Wilson catheter
Finasteride started
Assessment / Plan
Assessment / Plan
General: Comfortable and Conversant
HEENT: Anicteric and Moist mucous membranes
Respiratory: Clear and Non Labored Respirations
Cardiac: S1/S2, Irregular Rhythm and Murmur
GI: Soft, Non Tender and +bowel sounds)
Rectal: Deferred by Provider
Genito-Wilson with light yellow color urine
Musculoskeletal: No Clubbing, No Cyanosis and No Edema
Skin: Warm and Dry
Neuro: Awake, Alert, Oriented and Nonfocal/grossly intact
Psych: Calm
Sepsis with Lactic Acidosis secondary to prostatitis and suspected gastroenteritis
Pseudomonas bacteremia
- Lactic acidosis resolved
- Encourage increase p.o. intake
- Antibiotic now transition to cefepime from Zosyn. Patient will probably require IV antibiotics as allergic to ciprofloxacin.
- Diet advanced to low residue
- Urine culture with no growth surveillance blood cultures are negative. Susceptibility results noted.
-Stool studies negative for norovirus. Additional stool studies pending. Trial of Imodium and probiotic
- ID following
Urinary retention likely secondary to prostatitis
- Straight catheter x 3 and now with Wilson catheter
- Urology evaluation-recommended to keep Wilson catheter upon discharge and follow-up outpatient for voiding trial
- Patient had episode of hypotension with Flomax. Urology recommended finasteride 5 mg started.
Coronary Artery Disease s/p Stent
-Stable
Atrial Fibrillation / Flutter, unknown duration with intermittent bradycardia
-Continue Eliquis for anticoagulation
-Continue metoprolol for rate control will decrease dose
Essential Hypertension
-Continue metoprolol and lisinopril
Hyperlipidemia
-Continue atorvastatin
Hypomagnesemia
Hypokalemia
Replete and monitor
DVT proph: Eliquis
Code Status: Full Code
PT eval
Anticipated Discharge: 24 - 48 hours
Subjective/Interval History
-
Date of Service: August 24, 2025
Overnight with urinary retention required Wilson catheter placement
Currently HR mid 60s and blood pressure elevated
States of being allergic to ciprofloxacin in the past
Objective Data
-
Labs:
Laboratory Results
08/24/25
06:03
WBC 12.4 H
Hgb 11.5 L
Hct 32.6 L
Plt Count 135
Sodium 136
Potassium 3.3 L
Chloride 106
Carbon Dioxide 26
BUN 14
Creatinine 0.8
Glucose 107 H
Calcium 8.5
Vital Signs:
Vital Signs
Temp Pulse Resp BP Pulse Ox
98.5 F 70 16 175/94 95
08/24/25 11:55 08/24/25 11:55 08/24/25 11:55 08/24/25 11:55 08/24/25 11:55
I&O
08/23/25 08/24/25 08/25/25
06:59 06:59 06:59
Intake Total 2520 / 2520 960 / 960
Output Total 800 / 800 2225 / 2225
Balance 1720 / 1720 -1265 / -1265
Data Reviewed
-
Total Time Spent with Patient (in minutes): 55
--- NOTE | 2025-08-24 13:19 | W.PN.ID1 ---
Date of Service
Date of Service: August 24, 2025
Today's Communication
Replace Zosyn (d3) with cefepime 2g IV q8 through 09/04/25
Assessment / Plan
# Pseudomonas bacteremia
# Acute prostatitis/complicated UTI
# Urinary retention - orellana placed 08/24
# Diarrhea resolve - C. diff neg, norovirus neg
# Fever- resolving
# Leukocytosis - improving
# BPH
# Allergies to cipro, T/sulfa
- Ucx: >100K mixed blaire/contaminated
- Repeat blood cx's negative
-Place midline
-For easier dosing, replace Zosyn (d3) with cefepime 2g IV q8 through 09/04/25.
- Infusion sheet submitted to keycase assembler.
- Ordered midline.
- Follow wbc
Conditions present on admission:
CAD s/p Stent
Valvular Heart Disease
Atrial Fibrillation / Flutter
Hypertension
Dyslipidemia
Hyperlipidemia
Gout
BPH
Chief Complaint
-: UTI and Bacteremia
Subjective / Review of Systems
Feeling better. Now has orellana for retention.
No more diarrhea.
Vital Signs / Physical Exam
Vital Signs
Vital Signs
Temp Pulse Resp BP Pulse Ox
98.5 F 70 16 175/94 95
08/24/25 11:55 08/24/25 11:55 08/24/25 11:55 08/24/25 11:55 08/24/25 11:55
Physical Exam
Constitutional: No Acute Distress
Cardiovascular: Regular Rate and S1/S2
Pulmonary: Clear
Gastrointestinal: Soft, Non Tender and Non Distended
Genito-Urinary: Negative CVA Tenderness
Neurological: AO x 3
Objective Data
Lab Data
Lab Results
08/24/25 06:03
08/24/25 06:03
Estimated Creat Clear 66 ml/min 08/24/25 06:03
Lactic Acid 1.7 mmol/L (0.7-2.0) 08/22/25 00:46
Total Bilirubin 1.5 mg/dl (0.2-1.3) H 08/21/25 13:51
AST 29 U/L (17-59) 08/21/25 13:51
ALT 20 U/L (0-50) 08/21/25 13:51
Alkaline Phosphatase 96 U/L (38-126) 08/21/25 13:51
Most recent labs reviewed.
Micro Results:
08/23/25 15:44 Urine Culture - Final
Urine NO GROWTH
08/21/25 19:32 Salmonella/Shigella Culture - Final
Feces/Stool No Salmonella, Shigella, Aeromonas or Plesiomonas species
isolated.
Campylobacter Culture - Final
No Campylobacter species isolated.
Shiga Toxin Test - Pending
08/21/25 15:22 Blood Culture - Preliminary
Blood/Venous Pseudomonas aeruginosa
Gram Stain - Preliminary
08/23/25 06:33 Blood Culture - Preliminary
Blood/Venous No Growth in 24 hours- Final report to follow
08/23/25 05:52 Blood Culture - Preliminary
Blood/Venous No Growth in 24 hours- Final report to follow
08/21/25 13:51 Blood Culture - Preliminary
Blood/Venous No Growth in 48 hours- Final report to follow
08/21/25 17:40 Urine Culture - Final
Urine
08/22/25 21:42 C. difficile GDH Antigen & Toxins - Final
Feces/Stool Negative for toxigenic C.difficile
08/21/25 19:32 Norovirus (PCR) - Final
Feces/Stool Negative for Norovirus GI and GII.
08/21/25 13:51 Influenza Types A & B (LEIDY) - Final
Nasal Swab Negative for Influenza A & B, NAAT
Negative results must be combined with clinical observations
and patient history.
Nucleic Acid Amplification test (NAAT)performed on the
[employer] platform.
08/21/25 CXR: No acute cardiopulmonary abnormality.
08/21/25: CT a/p: Moderate prostatomegaly. There is apparent mild stranding along the prostate and seminal vesicles which is nonspecific although can be seen with prostatitis. Consider correlation with urinalysis.
[2025-08-24] MEDS: STERILE WATER FOR INJECTION 10 ML IV ×2 (15:46→22:28)
[2025-08-24] MEDS: MAXIPIME 2000 MG IV ×2 (15:47→22:28)
[2025-08-24] MEDS: ZYLOPRIM 200 MG PO (18:04)
[2025-08-24] MEDS: LIPITOR 40 MG PO (18:04)
[2025-08-24] MEDS: LOPRESSOR 12.5 MG PO (20:28)
[2025-08-24] MEDS: MELATONIN 5 MG PO (22:27)
[2025-08-25 03:00] VITALS: BP 176/90
[2025-08-25 05:28] VITALS: BMI 28.3
[2025-08-25] MEDS: MAXIPIME 2000 MG IV ×3 (05:37→21:23)
[2025-08-25] MEDS: STERILE WATER FOR INJECTION 10 ML IV ×3 (05:37→21:24)
[2025-08-25 06:33] LABS: Hematocrit 34.4 % (39.0-52.0); Hemoglobin 12.3 g/dL (13.0-18.0); Mean Corp Hgb Conc. 35.8 g/dL (33.0-37.0); Mean Corpuscular Volume 89.6 fL (80.0-94.0); Nucleated Red Blood Cells % 0 % (-); Platelet Count 167 10^3/uL (130-400); Red Cell Dist. Width 13.4 % (11.5-14.5)
[2025-08-25 06:57] LABS: Blood Urea Nitrogen 14 mg/dl (9-20); Calcium 8.7 mg/dl (8.4-10.2); Carbon Dioxide 25 mmol/L (22-30); Chloride 107 mmol/L (98-107); Estimated Creatinine Clearance 75 ml/min; Glucose 106 mg/dl (70-99); Potassium 3.6 mmol/L (3.5-5.1); Sodium 140 mmol/L (135-145); eGFR > 60.00
[2025-08-25 08:01] VITALS: BP 174/82
--- NOTE | 2025-08-25 08:11 | W.PN.UPDATE ---
Update Note
Progress Note Update
Chart reviewed. No fevers in > 24 hrs and WBC down-trending. 08/23 UCx and BCx NG.
Continue orellana catheter until IV abx completed
Continue finasteride
No active urologic intervention
Still recommend outpatient void trial in urology office
[2025-08-25] MEDS: ELIQUIS 5 MG PO ×2 (08:30→20:17)
[2025-08-25] MEDS: LOPRESSOR 12.5 MG PO ×2 (08:30→20:15)
[2025-08-25] MEDS: ZESTRIL 10 MG PO (08:30)
[2025-08-25] MEDS: PROSCAR 5 MG PO (08:31)
--- NOTE | 2025-08-25 10:33 | PN.CDI ---
CDI
- -
CDI:
Physician Documentation Request
Admit Date: 08/21/25 20:15
Dear Doctor Theodore,
Progress note states 'Sepsis with Lactic Acidosis secondary to prostatitis and suspected gastroenteritis'
Please clarify which of the following accurately represents the acuity of the prostatitis
____ Acute
Acute on Chronic
Chronic
____ Other
Use of terms such as suspected, likely, concern for, or probable (associated with a specific diagnosis that is being evaluated, monitored, or treated as if it exists) are acceptable and can be coded in the inpatient setting, when documented at the
time of discharge.
Thank you,
Annette Short RN BSN
CDI Specialist
tiger text
Please use your independent medical judgment in providing your response.
--- NOTE | 2025-08-25 11:06 | W.PN.HOSP.TC ---
Today's Communication/Plan
-
Continue with IV cefepime
Assessment / Plan
Assessment / Plan
General: Comfortable and Conversant
HEENT: Anicteric and Moist mucous membranes
Respiratory: Clear and Non Labored Respirations
Cardiac: S1/S2, Irregular Rhythm and Murmur
GI: Soft, Non Tender and +bowel sounds)
Rectal: Deferred by Provider
Genito-Wilson with light yellow color urine
Musculoskeletal: No Clubbing, No Cyanosis and No Edema
Skin: Warm and Dry
Neuro: Awake, Alert, Oriented and Nonfocal/grossly intact
Psych: Calm
Sepsis with Lactic Acidosis secondary to prostatitis and suspected gastroenteritis
Pseudomonas bacteremia
- Lactic acidosis resolved
- Encourage increase p.o. intake
- Antibiotic now transition to cefepime from Zosyn. Patient will probably require IV antibiotics as allergic to ciprofloxacin. Plan for IV cefepime 09/04. Midline placed. Awaiting case management for IV antibiotic home completion set up.
- Diet advanced to low residue. Leukocytosis resolved.
- Urine culture with no growth surveillance blood cultures are negative. Susceptibility results noted.
-Stool studies negative for norovirus. Trial of Imodium and probiotic
- ID following
Urinary retention likely secondary to acute prostatitis
- Straight catheter x 3 and now with Wilson catheter
- Urology evaluation-recommended to keep Wilson catheter upon discharge and follow-up outpatient for voiding trial
- Patient had episode of hypotension with Flomax. Urology recommended finasteride 5 mg started.
Coronary Artery Disease s/p Stent
-Stable
Atrial Fibrillation / Flutter, unknown duration with intermittent bradycardia
-Continue Eliquis for anticoagulation
-Continue metoprolol for rate control will decrease dose
Essential Hypertension
-Continue metoprolol and lisinopril
- Can consider increasing lisinopril
Hyperlipidemia
-Continue atorvastatin
Hypomagnesemia
Hypokalemia
Replete and monitor
DVT proph: Eliquis
Code Status: Full Code
PT eval-home health
CM informed for IV abx
Anticipated Discharge: Today
Subjective/Interval History
-
Date of Service: August 25, 2025
Heart rate seems to be doing well.
Remains afebrile
With good urinary output and Wilson catheter
States of having 1 loose bowel movement earlier this morning
Objective Data
-
Labs:
Laboratory Results
08/25/25
05:45
WBC 10.6
Hgb 12.3 L
Hct 34.4 L
Plt Count 167 D
Sodium 140
Potassium 3.6
Chloride 107
Carbon Dioxide 25
BUN 14
Creatinine 0.7
Glucose 106 H
Calcium 8.7
Vital Signs:
Vital Signs
Temp Pulse Resp BP Pulse Ox
98.5 F 73 16 174/82 95
08/25/25 08:01 08/25/25 08:30 08/25/25 08:01 08/25/25 08:30 08/25/25 08:01
I&O
08/24/25 08/25/25 08/26/25
06:59 06:59 06:59
Intake Total 960 / 960 1800 / 1800
Output Total 2225 / 2225 4275 / 4275
Balance -1265 / -1265 -2475 / -2475
--- NOTE | 2025-08-25 11:21 | W.PN.ID1 ---
Date of Service
Date of Service: August 25, 2025
Today's Communication
DC home when home IV set up.
Assessment / Plan
# Pseudomonas bacteremia
# Acute prostatitis/complicated UTI
# Urinary retention - orellana placed 08/24
# Diarrhea resolved - C. diff neg, norovirus neg
# Fever- resolved
# Leukocytosis - improved
# BPH
# Allergies to cipro, T/sulfa
- Ucx: >100K mixed blaire/contaminated
- Repeat blood cx's negative
- midline in place
- cefepime 2g IV q8 through 09/04/25.
- Infusion sheet submitted to catalytic case operator 08/24/25
- DC home when home IV set up.
-Follow-up with Urology.
Conditions present on admission:
CAD s/p Stent
Valvular Heart Disease
Atrial Fibrillation / Flutter
Hypertension
Dyslipidemia
Hyperlipidemia
Gout
BPH
Chief Complaint
-: UTI and Bacteremia
Subjective / Review of Systems
at bedside.
Pt feeling well. Asking about discharge planning.
Vital Signs / Physical Exam
Vital Signs
Vital Signs
Temp Pulse Resp BP Pulse Ox
98.5 F 73 16 174/82 95
08/25/25 08:01 08/25/25 08:30 08/25/25 08:01 08/25/25 08:30 08/25/25 08:01
Physical Exam
Constitutional: No Acute Distress
Cardiovascular: Regular Rate and S1/S2
Pulmonary: Clear
Gastrointestinal: Soft, Non Tender and Non Distended
Genito-Urinary: Orellana and Clear Urine; Negative CVA Tenderness
Neurological: AO x 3
Objective Data
Lab Data
Lab Results
08/25/25 05:45
08/25/25 05:45
Estimated Creat Clear 75 ml/min 08/25/25 05:45
Lactic Acid 1.7 mmol/L (0.7-2.0) 08/22/25 00:46
Total Bilirubin 1.5 mg/dl (0.2-1.3) H 08/21/25 13:51
AST 29 U/L (17-59) 08/21/25 13:51
ALT 20 U/L (0-50) 08/21/25 13:51
Alkaline Phosphatase 96 U/L (38-126) 08/21/25 13:51
Most recent labs reviewed.
Micro Results:
08/21/25 19:32 Salmonella/Shigella Culture - Final
Feces/Stool No Salmonella, Shigella, Aeromonas or Plesiomonas species
isolated.
Campylobacter Culture - Final
No Campylobacter species isolated.
Shiga Toxin Test - Final
No E. coli Shiga Toxin 1 or 2 detected.
08/23/25 06:33 Blood Culture - Preliminary
Blood/Venous No Growth in 48 hours- Final report to follow
08/23/25 05:52 Blood Culture - Preliminary
Blood/Venous No Growth in 48 hours- Final report to follow
08/21/25 13:51 Blood Culture - Preliminary
Blood/Venous No Growth in 72 hours- Final report to follow
08/23/25 15:44 Urine Culture - Final
Urine NO GROWTH
08/21/25 15:22 Blood Culture - Preliminary
Blood/Venous Pseudomonas aeruginosa
Gram Stain - Preliminary
08/21/25 17:40 Urine Culture - Final
Urine
08/22/25 21:42 C. difficile GDH Antigen & Toxins - Final
Feces/Stool Negative for toxigenic C.difficile
08/21/25 19:32 Norovirus (PCR) - Final
Feces/Stool Negative for Norovirus GI and GII.
08/21/25 13:51 Influenza Types A & B (LEIDY) - Final
Nasal Swab Negative for Influenza A & B, NAAT
Negative results must be combined with clinical observations
and patient history.
Nucleic Acid Amplification test (NAAT)performed on the
[employer] platform.
08/21/25 CXR: No acute cardiopulmonary abnormality.
08/21/25: CT a/p: Moderate prostatomegaly. There is apparent mild stranding along the prostate and seminal vesicles which is nonspecific although can be seen with prostatitis. Consider correlation with urinalysis.
[2025-08-25 11:42] VITALS: BP 165/81
--- NOTE | 2025-08-25 12:30 | CM ---
Addendum entered by Mora Finley 08/25/25 16:36:
Burton met with Seng to make him aware that
Original Note:
Referral sent to [facility] FLORES and [facility] for infusion services. Start of care anticipated tomorrow.
Awaiting pricing for the IV abx. CM will discuss with patient today.
[facility] FL[facility]
[2025-08-25 15:55] VITALS: BP 184/87
--- NOTE | 2025-08-25 16:41 | CM ---
CM met with Mr. Youngblood to discuss discharge plans with infusion services.
Referral sent to [facility]OR[facility] and [facility] for infusion services. Start of care anticipated tomorrow; pt will need to be home by 12noon tomorrow for delivery of medication and infusion teaching. Pt is agreeable to this plan.
TT sent to Dr. Jaimes to make him aware of request for discharge by 12noon. RN notified of same.
Plan: Discharge to home with IV infusion/med delivery via [facility].
[facility]
[2025-08-25] MEDS: LIPITOR 40 MG PO (17:06)
[2025-08-25] MEDS: ZYLOPRIM 200 MG PO (17:06)
[2025-08-25 19:00] VITALS: BP 170/91
[2025-08-25] MEDS: MELATONIN 5 MG PO (21:24)
[2025-08-25 23:00] VITALS: BP 165/78
[2025-08-26 03:00] VITALS: BP 160/85
[2025-08-26 05:02] VITALS: BP 181/84
[2025-08-26 05:40] VITALS: BMI 27.9
[2025-08-26] MEDS: MAXIPIME 2000 MG IV (05:46)
[2025-08-26] MEDS: STERILE WATER FOR INJECTION 10 ML IV (05:46)
[2025-08-26 06:54] LABS: Blood Urea Nitrogen 18 mg/dl (9-20); Calcium 8.7 mg/dl (8.4-10.2); Carbon Dioxide 27 mmol/L (22-30); Chloride 107 mmol/L (98-107); Estimated Creatinine Clearance 75 ml/min; Glucose 100 mg/dl (70-99); Potassium 3.7 mmol/L (3.5-5.1); Sodium 140 mmol/L (135-145); eGFR > 60.00
[2025-08-26 07:59] VITALS: BP 187/100
[2025-08-26] MEDS: ELIQUIS 5 MG PO (08:57)
[2025-08-26] MEDS: PROSCAR 5 MG PO (08:58)
[2025-08-26] MEDS: ZESTRIL 10 MG PO (08:58)
[2025-08-26] MEDS: LOPRESSOR 12.5 MG PO (08:58)
--- NOTE | 2025-08-26 09:24 | W.PN.ID1 ---
Date of Service
Date of Service: August 26, 2025
Today's Communication
DC home.
Assessment / Plan
# Pseudomonas bacteremia
# Acute prostatitis/complicated UTI
# Urinary retention - orellana placed 08/24
# Diarrhea resolved - C. diff neg, norovirus neg
# Fever- resolved
# Leukocytosis - improved
# BPH
# Allergies to cipro, T/sulfa
- Ucx: >100K mixed blaire/contaminated
- Repeat blood cx's negative
- midline in place
- cefepime 2g IV q8 through 09/04/25.
- Infusion sheet submitted to case maker 08/24/25
- DC home today.
-Follow-up with Urology.
Conditions present on admission:
CAD s/p Stent
Valvular Heart Disease
Atrial Fibrillation / Flutter
Hypertension
Dyslipidemia
Hyperlipidemia
Gout
BPH
Chief Complaint
-: UTI and Bacteremia
Subjective / Review of Systems
IV abx will be delivered to home at 1pm.
Feels well.
Vital Signs / Physical Exam
Vital Signs
Vital Signs
Temp Pulse Resp BP Pulse Ox
97.7 F 76 17 187/100 98
08/26/25 07:59 08/26/25 08:58 08/26/25 07:59 08/26/25 08:58 08/26/25 07:59
Physical Exam
Constitutional: No Acute Distress and Comfortable
Cardiovascular: Regular Rate and S1/S2
Gastrointestinal: Soft, Non Tender and Non Distended
Genito-Urinary: Orellana and Clear Urine; Negative CVA Tenderness
Neurological: AO x 3
Lines: Other (LUE midline in place)
Objective Data
Lab Data
Lab Results
08/25/25 05:45
08/26/25 05:51
Estimated Creat Clear 75 ml/min 08/26/25 05:51
Lactic Acid 1.7 mmol/L (0.7-2.0) 08/22/25 00:46
Total Bilirubin 1.5 mg/dl (0.2-1.3) H 08/21/25 13:51
AST 29 U/L (17-59) 08/21/25 13:51
ALT 20 U/L (0-50) 08/21/25 13:51
Alkaline Phosphatase 96 U/L (38-126) 08/21/25 13:51
Most recent labs reviewed.
Micro Results:
08/23/25 06:33 Blood Culture - Preliminary
Blood/Venous No Growth in 72 hours- Final report to follow
08/23/25 05:52 Blood Culture - Preliminary
Blood/Venous No Growth in 72 hours- Final report to follow
08/21/25 13:51 Blood Culture - Preliminary
Blood/Venous No Growth in 4 days- Final report to follow
08/21/25 19:32 Salmonella/Shigella Culture - Final
Feces/Stool No Salmonella, Shigella, Aeromonas or Plesiomonas species
isolated.
Campylobacter Culture - Final
No Campylobacter species isolated.
Shiga Toxin Test - Final
No E. coli Shiga Toxin 1 or 2 detected.
08/23/25 15:44 Urine Culture - Final
Urine NO GROWTH
08/21/25 15:22 Blood Culture - Preliminary
Blood/Venous Pseudomonas aeruginosa
Gram Stain - Preliminary
08/21/25 17:40 Urine Culture - Final
Urine
08/22/25 21:42 C. difficile GDH Antigen & Toxins - Final
Feces/Stool Negative for toxigenic C.difficile
08/21/25 19:32 Norovirus (PCR) - Final
Feces/Stool Negative for Norovirus GI and GII.
08/21/25 13:51 Influenza Types A & B (LEIDY) - Final
Nasal Swab Negative for Influenza A & B, NAAT
Negative results must be combined with clinical observations
and patient history.
Nucleic Acid Amplification test (NAAT)performed on the
[employer] platform.
08/21/25 CXR: No acute cardiopulmonary abnormality.
08/21/25: CT a/p: Moderate prostatomegaly. There is apparent mild stranding along the prostate and seminal vesicles which is nonspecific although can be seen with prostatitis. Consider correlation with urinalysis.
--- NOTE | 2025-08-26 09:55 | PN.CDI ---
CDI
- -
CDI:
Physician Documentation Request
Admit Date: 08/21/25 20:15
Dear Doctor Theodore,
Patient presented with chills, diarrhea and vomiting.
Patient found to septic
Progress note states 'Sepsis with Lactic Acidosis secondary to prostatitis and suspected gastroenteritis'
Please clarify the type of suspected gastroenteritis:
infectious
noninfectious
Other
Use of terms such as suspected, likely, concern for, or probable (associated with a specific diagnosis that is being evaluated, monitored, or treated as if it exists) are acceptable and can be coded in the inpatient setting, when documented at the
time of discharge.
Thank you,
Annette Short RN BSN
CDI Specialist
tiger text
Please use your independent medical judgment in providing your response.
--- NOTE | 2025-08-26 10:31 | W.PN.HOSP.TC ---
Addendum entered and electronically signed by Zi Jaimes MD 08/26/25 14:33:
Sepsis with Lactic Acidosis secondary to prostatitis and suspected gastroenteritis likely viral
Original Note:
Today's Communication/Plan
-
dc home
iv abx
orellana bag teaching
Assessment / Plan
Assessment / Plan
General: Comfortable and Conversant
HEENT: Anicteric and Moist mucous membranes
Respiratory: Clear and Non Labored Respirations
Cardiac: S1/S2, Irregular Rhythm and Murmur
GI: Soft, Non Tender and +bowel sounds)
Rectal: Deferred by Provider
Genito-Orellana with light yellow color urine
Musculoskeletal: No Clubbing, No Cyanosis and No Edema
Skin: Warm and Dry
Neuro: Awake, Alert, Oriented and Nonfocal/grossly intact
Psych: Calm
Sepsis with Lactic Acidosis secondary to prostatitis and suspected gastroenteritis
Pseudomonas bacteremia
- Lactic acidosis resolved
- Encourage increase p.o. intake
- Antibiotic now transition to cefepime from Zosyn. Patient will probably require IV antibiotics as allergic to ciprofloxacin. Plan for IV cefepime 09/04. Midline placed. Awaiting case management for IV antibiotic home completion set up.
- Diet advanced to low residue. Leukocytosis resolved.
- Urine culture with no growth surveillance blood cultures are negative. Susceptibility results noted.
-Stool studies negative for norovirus. Trial of Imodium and probiotic
- ID following
Urinary retention likely secondary to acute prostatitis
- Straight catheter x 3 and now with Orellana catheter
- Urology evaluation-recommended to keep Orellana catheter upon discharge and follow-up outpatient for voiding trial
- Patient had episode of hypotension with Flomax. Urology recommended finasteride 5 mg started. States talked to his primary doctor-will d/w with him to being started back on flomax and titrate down on BP meds. BP elevated here so should be fine.
States he will d/w with his pcp and primary uorlogist Dr. Bar.
Coronary Artery Disease s/p Stent
-Stable
Atrial Fibrillation / Flutter, unknown duration with intermittent bradycardia
-Continue Eliquis for anticoagulation
-Continue metoprolol for rate control will decrease dose
Essential Hypertension
-Continue metoprolol and lisinopril
- Can consider increasing lisinopril
Hyperlipidemia
-Continue atorvastatin
Hypomagnesemia
Hypokalemia
Replete and monitor
DVT proph: Eliquis
Code Status: Full Code
PT eval-home health
d/w with spouse at bedside in details
More than 30 minutes spent in discharge including
Final examination of the patient
Summarizing hospital stay
Instructions for continuing care to all relevant caregivers
Preparation of discharge records, prescriptions, and referral forms
Total time spent (in minutes): 53
Anticipated Discharge: Today
Subjective/Interval History
-
Date of Service: August 26, 2025
feeling better
Objective Data
-
Labs:
Laboratory Results
08/26/25
05:51
Sodium 140
Potassium 3.7
Chloride 107
Carbon Dioxide 27
BUN 18
Creatinine 0.7
Glucose 100 H
Calcium 8.7
Vital Signs:
Vital Signs
Temp Pulse Resp BP Pulse Ox
97.7 F 76 17 187/100 98
08/26/25 07:59 08/26/25 08:58 08/26/25 07:59 08/26/25 08:58 08/26/25 07:59
I&O
08/25/25 08/26/25 08/27/25
06:59 06:59 06:59
Intake Total 1800 / 1800 840 / 840
Output Total 4275 / 4275 1895 / 1895
Balance -2475 / -2475 -1055 / -1055
--- NOTE | 2025-08-26 10:33 | W.DCSUMMARY ---
Discharge Summary
Discharge Data
Date of Admission: 08/21/25
Date of Discharge: 08/26/25
-
Pending Results: No
Hospital Course
89-year-old male past medical history of hypertension, CAD status post times, A-fib who is presenting from home with complaints of urinary urgency and diarrhea. Patient was found to have sepsis with lactic acidosis. IV fluids were started which
was eventually discontinued. Patient stool studies were negative for C. difficile. Patient was found to have a Pseudomonas bacteremia. Surveillance cultures were found to be negative. IV Zosyn was continued which was eventually transitioned to
cefepime. Patient was allergic to ciprofloxacin. Midline was placed and patient will be continue IV cefepime per infectious disease recommendation. Patient also with urinary retention which was deemed likely secondary to acute prostatitis. Orellana
catheter was placed. Urology was consulted. Per urology continue with Orellana catheter and outpatient follow-up recommended for voiding trial. Patient with intermittent episode of low heart rate Lopressor dose was decreased. Patient to follow-up
with primary doctor and consideration of being restarted on Flomax and manage his blood pressure as in the past due to Flomax he had episode of hypotension. Patient was eval by PT and OT and be discharged to home with IV antibiotics.
Discharge Plan
-
Patient Disposition: Home with Home Care
Discharge Diagnosis/Procedures: Sepsis with Lactic Acidosis secondary to prostatitis and suspected gastroenteritis
Pseudomonas bacteremia
Lactic acidosis
Urinary retention likely secondary to acute prostatitis s/p orellana catheter placement
Condition: Fair
Diet: Low Residue
Activity: As tolerated
Driving Restrictions: As prior to admission
Activity Restrictions/Additional Instructions:
Continue cefepime 2g IV q8 through 09/04/25.
Instructions: How to Care for Your Orellana Catheter, Male
Referrals:
Home Mireles MD [Family Provider, Family Practice] - in less than 1 week
Yogi Bar MD [Active, Urology]
Referral Note: call to make appointment for voiding trial.
Joanie Tamez MD [Active, Infectious Diseases] - As needed
Prescriptions:
New
cefepime 2 gram Recon Soln
2,000 mg IV Q8H Qty: 10 0RF
finasteride 5 mg Tablet
5 mg PO DAILY 30 Days Qty: 30 0RF
Continued
atorvastatin 40 MG tablet
40 mg PO QPM
allopurinol 100 MG tablet
200 mg PO QPM
lisinopril 10 MG tablet
10 mg PO DAILY
acetaminophen [Tylenol Extra Strength] 500 MG tablet
500 mg PO BID@0800,1400
Eliquis 5 MG tablet
5 mg PO BID
polyethylene glycol 3350 17 gram Powder In Packet
17 g PO DAILY
therapeutic multivitamin Tablet
1 tab PO DAILY
omeprazole 20 mg capsule,delayed release(DR/EC)
20 mg PO BID
diphenhydramine-acetaminophen [Acetaminophen PM] 25-500 mg Tablet
1 tab PO HS
fluticasone propionate 50 mcg/actuation [place],Suspension
1 spray INTRANASAL QPM
Tylenol Cold and Flu Severe 3-42-461-200 mg Tablet
2 tab PO DAILYPRN PRN (Reason: cold)
omega 3-zjp-tyb-fish oil [Fish Oil] 1,000 (120-180) mg Capsule
1 cap PO DAILY
calcium 26-magnesium 15-zinc 167 mg calcium- 83 mg-5 mg Capsule
1 cap PO DAILY
Changed
metoprolol tartrate 25 MG tablet
12.5 mg PO BID Qty: 0 0RF
Discharge Orders:
Discharge Patient (As Directed); Ordered 08/26/25
Ordered By: Zi Jaimes
Discharge Date and Time
Discharge Date/Time: 08/26/25 12:09
Print Language: SUDANESE
[2025-08-26 11:08] VITALS: BP 138/77
--- NOTE | 2025-08-26 11:15 | CM ---
Patient is from home w/ spouse. 3 story home with full bath on first floor, bedrooms on the second floor. Pt reports being independent prior to admission, no DME or home care in the past.
No skilled PT/OT needed. Plan D/C to home today. Pt's will drive him home today
Plan: Discharge to home with no identified needs. .
== END 2025-08-26 12:09 | disposition home or self-care (01) | DRG 872 ==
LOC: 3 WEST ACU 20:15
PROVIDERS: Physician Assistant Medical; Student in an Organized Health Care Education/Training Program; ADMITTING PHYSICIAN Hospitalist; ATTENDING PHYSICIAN Hospitalist; CONSULT PHYSICIAN Internal Medicine Infectious Disease; CONSULT PHYSICIAN Student in an Organized Health Care Education/Training Program; EMERGENCY PHYSICIAN Student in an Organized Health Care Education/Training Program; FAMILY PHYSICIAN Family Medicine
DX: A41.9 Sepsis, unspecified organism (principal); E87.20 Acidosis, unspecified; N41.0 Acute prostatitis; K52.9 Noninfective gastroenteritis and colitis, unspecified; B96.5 Pseudomonas (aeruginosa) (mallei) (pseudomallei) as the cause of diseases classified elsewhere; R65.20 Severe sepsis without septic shock; I10 Essential (primary) hypertension; I25.10 Atherosclerotic heart disease of native coronary artery without angina pectoris; I48.91 Unspecified atrial fibrillation; Z88.1 Allergy status to other antibiotic agents; E87.6 Hypokalemia; E83.42 Hypomagnesemia; K21.9 Gastro-esophageal reflux disease without esophagitis; Z88.2 Allergy status to sulfonamides; Z79.01 Long term (current) use of anticoagulants; Z79.899 Other long term (current) drug therapy; E78.00 Pure hypercholesterolemia, unspecified; N40.0 Benign prostatic hyperplasia without lower urinary tract symptoms; R73.03 Prediabetes; Z95.5 Presence of coronary angioplasty implant and graft; Z11.52 Encounter for screening for COVID-19
CPT/HCPCS: 71046; 74177; 80048; 80053; 81003; 81015; 83036; 83605; 83735; 85025; 85027; 87040; 87045; 87046; 87077; 87086; 87154; 87186; 87205; 87324; 87427; 87449; 87502; 87798; 87811; 93005; 96360; 97116; 97162; 99285; Q9967